=== PATIENT | male | born 1985 | race Caucasian/White ===

== ENCOUNTER 2017-02-12 01:52 | Inpatient (IN) | payer MEDICAID, OTHER ==
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
[2017-02-12] MEDS ORDERED: MAGNESIUM HYDROXIDE 2,400 MG/10 ML CUP PO PRN (06:59)
[2017-02-12] MEDS ORDERED: ACETAMINOPHEN TAB 325 MG TAB PO PRN (06:59)
[2017-02-12] MEDS ORDERED: MAG HYDROX/AL HYDROX/SIMETH 30 ML CUP PO PRN (06:59)
[2017-02-12 07:20] VITALS: RESP 18
[2017-02-12] MEDS: NICOTINE 21MG/24HR PATCH TRANSDERM SCH (09:49)
[2017-02-12 10:03] LABS: Basophils # (A) 0.1 k/uL (0-0.2); Basophils % (A) 1 %; CH 32.5; CHCM 34.4; Eosinophils # (A) 0.1 k/uL (0-0.7); Eosinophils % (A) 1 %; HCT 49.4 % (39.0-53.0); HDW 2.41; HGB 16.7 gm/dL (13.0-17.5); Luc # (Auto) 0.21; Luc % (Auto) 3; Lymphocytes # (A) 2.3 k/uL (1.0-4.8); Lymphocytes % (A) 31 %; MCHC 33.8 g/dL (31.0-37.0); MCV 94.9 fL (80.0-100.0); Mean Platelet Volume 7.5; Monocytes # (A) 0.4 k/uL (0-1.0); Monocytes % (A) 5 %; Neutrophils # (A) 4.4 k/uL (1.3-7.7); Neutrophils % (A) 59 %; RBC 5.21 m/uL (4.30-5.90); RDW 12.7 % (11.5-15.5); WBC 7.5 k/uL (3.8-10.6); WBC (Perox) 7.52
[2017-02-12 10:59] LABS: Anion Gap 13 mmol/L; Blood Urea Nitrogen 10 mg/dL (9-20); Calcium 9.9 mg/dL (8.4-10.2); Carbon Dioxide 26 mmol/L (22-30); Chloride 104 mmol/L (98-107); Glucose 149 mg/dL (74-99); Non-African American GFR(MDRD) >60 (>60 ml/min/1.73 sqM); Potassium 4.8 mmol/L (3.5-5.1); Sodium 143 mmol/L (137-145); Total Protein 8.1 g/dL (6.3-8.2)
[2017-02-12 11:00] LABS: ALT 35 U/L (21-72); AST 46 U/L (17-59); Alkaline Phosphatase 63 U/L (38-126); Total Bilirubin 0.7 mg/dL (0.2-1.3)
--- NOTE | 2017-02-12 14:03 | HP ---
DATE OF ADMISSION: DATE OF SERVICE: 02/12/2017 HISTORY OF PRESENT ILLNESS: Patient is a 31, single male, who was brought to the emergency room by the [place] police with petition completed by the officer, described him as making suicidal statement with the plan to shoot himself with a gun. According to the petition, officer who was called by patient's mother who just came to the patient house and she found him stressed out and wanted to end his life and told her that he had a gun. Patient at that time was intoxicated as he stated that she did have at least 15 beers from 9 o'clock until 12 midnight. Patient did not remember that he took the gun out of the safety cabinet, but he does recall that he did get into conflict with her girlfriend of 8 years as he said, "We were planning to have the night for ourself, then she left and she went to show with her sister and her mother and her friend." Patient denied any current suicidal or homicide ideation. He denied any depressive symptoms. He stated that he has been stressed out for the last couple of weeks due to a lot of financial problems as they are 4 months behind on their mortgage, in addition over the last week his girlfriend's car and his car, they need a lot of repair. The patient stated that he had at least 4 guns, but they are always in the safety cabinet and according to him he has been having a lot of issues in the relationship just for the last couple of months. 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 He did admit that he was angry with her on the phone, especially when she told him "I wish that she will ." Patient and his 8 years girlfriend they have a daughter who is 6 years of age, but yesterday she was spending the night over at her grandmother's as patient and his girlfriend were planning to have the night for themselves. Patient describes that he has been drinking alcohol just on the weekend, but it seems to me it is more binge drinking as he does drink between 10 to 15 beers on the weekend. He does not feed that he has any drinking problem except "just yesterday I had a lot." He denied any liquor use. His urine drug screen was negative at the time of his arrival to the emergency room. Patient denied any manic or hypomanic symptoms. He denied any obsession or compulsive symptoms. He denied feeling hopeless or helpless or worthless. He did admit that sometimes he has trouble sleeping, especially with alcohol. PAST PSYCHIATRIC HISTORY: There is no previous inpatient or outpatient treatment. There is no previous suicidal attempt. Family history of mental illness. Patient's father was drinking. He denied any suicidal in the family. His older brother who is half-sibling, Adriano has mental illness but patient is not aware which symptoms. PAST MEDICAL HISTORY: He denied any acute medical problem. ALLERGIES: There is no known allergy. HOME MEDICATION: There is no home medication. SUBSTANCE ABUSE HISTORY: He did admit to using alcohol and he denied any other drug; however, he stated that he does drink only on the weekend. He had a drunk driving ticket 4 years ago. SOCIAL HISTORY: Patient has one full biological brother who is younger than him, but he has one stepsister and one-half brother. His parents got when the patient was 4 years of age. His mother remarried when the patient was 13 years of age and he stated that his stepfather is his best friend. He graduated from high school. He denied any problem, even he stated that he did play a lot of sports. 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 He met his girlfriend Nydia who 36 years of age 8 years ago and they had been living together 7 years ago. They have one daughter who is 6 years of age, but Nydia has 2 children from previous relationship, a son who is 15 years of age and daughter who is 19 years of age. Patient stated that there is a lot of stress in the relationship lately due to financial issue. Nydia is working full-time as a computer clerk. MENTAL STATUS EXAMINATION: Patient presented as male who was wearing hospital , appearing his stated age. His eye contact is appropriate. Speech is nonpressure, spontaneous, he stated that he does not remember exactly what happened last night, but he did admit that he was stressed out due to relationship and financial problems. Thought process is linear. He reports no suicidal or homicidal ideation. He demonstrates no verbal or physical aggression. He denied any psychotic feature. He does not appear manic or hypomanic. His cognitive function is intact, as he is alert, oriented to person, place and date. His insight and judgment are limited. INTELLECTUAL FUNCTION: Average. STRENGTHS: Patient has stable job, has his own home and has very good support system, especially his mother and stepfather. WEAKNESS: Relationship problem and financial issue. IMPRESSION: 1. Mood disorder, not otherwise specified. 2. Alcohol use disorder. According to him it is more on binge drinking. 3. Rule out substance abuse, induced mood disorder. PLAN: Patient has been admitted to the mental health unit. He did agree to sign himself in voluntarily. I will start him on [facility] protocol for alcohol detox; however, patient stated that usually he does not have any withdrawal symptoms. Financial Sales Manager to contact patient's mother and girlfriend to complete psychosocial assessment and also to be sure that all the guns will be removed from the house. Will request a routine medical consultation. Will monitor him for safety and encourage him to participate in milieu.
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
[2017-02-13] MEDS: NICOTINE 21MG/24HR PATCH TRANSDERM SCH (09:13)
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
[2017-02-14 06:48] VITALS: BP 108/59; PULSE 64; TEMP 98
--- NOTE | 2017-02-14 08:37 | P.DS ---
Providers Date of admission: 02/12/17 06:13 Expected date of discharge: 02/14/17 Attending physician: Malcolm Livingston Consults: 02/12/17 06:59 Consult Physician Routine Consulting Provider: Bjorn Herrera Consult Reason/Comments: H AND P WITH MEDICAL FOLLOW UP Do you want consulting provider notified?: Yes, Notify in am Primary care physician: Stated None - Discharge Diagnosis(es) (1) Adjustment disorder with depressed mood Current Visit: Yes Status: Acute Priority: High Hospital Course: Brief summary of admission note: This patient is a 31-year-old male who was admitted to the mental health unit by Dr. Swann. He was brought in by police and he was described making suicidal statements while intoxicated with alcohol. He apparently was involved in a verbal altercation with his girlfriend. He went to his friend's house and began drinking. He reports having anywhere from 10-15 beers in the evening hours. He reported going home getting a gun out. He made some concerning statements the police were called. The weapons were removed from the home and the patient was brought to the emergency room. For full details please refer to the psychiatric evaluation dictated by Dr. Swann 02/12/2017. Summary of hospital course: The patient was admitted to the mental health unit he did sign in voluntarily. I assumed his care yesterday. The patient was interviewed yesterday and today. The electronic chart was reviewed. The patient endorses no history of major depressive episodes. He endorses no history of psychosis no history of hypomanic or manic episodes. He describes his drinking as weekends only but it does appear excessive on the days that he does drink. Both yesterday and today he adamantly denies having any suicidal thoughts. He is mainly concerned about not seeing his family and he needs to get back to work because of financial concerns. He admits him and his girlfriend need to talk more about budgeting their money as that tends to be the source of arguments. The patient was cooperative on the mental health unit he demonstrated no agitated behavior. He does not seem to require a psychotropic medication at this time. We discussed his ability to discontinue use of alcohol. He does not wish to participate in inpatient chemical dependency treatment. He does recognize that he can use more than a safe number of drinks on an occasion but he feels he can control this and needs no other external help. He voiced a willingness to social work to meet with an individual therapist upon discharge as long as it was in the evening hours. The patient underwent a routine medical exam. Mental status exam: The patient is alert he is casually dressed eye contact is appropriate. He is pleasant and cooperative. Eye contact is good speech is fluent spontaneous nonpressured. He states his mood is anxious to get out of here. He is reporting no feelings of sadness or depression. He states he does not feel hopeless he has no suicidal ideation intent or plan. He reports no homicidal ideation intent or plan. He reports no auditory or visual hallucinations he is endorsing no specific delusions. There is no overt evidence of psychosis. He does not appear hypomanic or manic. There is no verbal or physical aggressive behavior. He is oriented to person place and date. Affect is appropriately expressive. Impressions 1. Adjustment disorder with depressed mood, rule out alcohol use disorder 2. Recent financial strain, verbal altercation with girlfriend Plan: The patient's will be discharged from mental health unit today following his support meeting at 2 PM. His girlfriend will be attending that meeting and will be facilitated by social work. Social work will arrange outpatient mental health services for the patient to work with an individual counselor. He is strongly encouraged to discontinue use of alcohol. He may address alcohol use issues with his outpatient therapist. There is no imminent safety risk she does not require further psychiatric hospitalization. He is instructed to return the hospital with any acute safety issues. Patient Condition at Discharge: Stable Plan - Discharge Summary New Discharge Prescriptions: Nicotine 21Mg/24Hr Patch [Habitrol] 1 patch TRANSDERM DAILY #14 patch Discharge Medication List Nicotine 21Mg/24Hr Patch [Habitrol] 1 patch TRANSDERM DAILY #14 patch 02/14/17 [ Rx] Follow up Appointment(s)/Referral(s): None,Stated [Primary Care Provider] - 1 Week
[2017-02-14] MEDS: NICOTINE 21MG/24HR PATCH TRANSDERM SCH (09:20)
== END 2017-02-14 14:06 | disposition home or self-care (01) | DRG 881 ==
LOC: EC 01:52 → 3MHU 06:13
PROVIDERS: ADMIT Psychiatry & Neurology Psychiatry; ATTEND Psychiatry & Neurology Psychiatry
DX: F43.21 Adjustment disorder with depressed mood (principal); R45.851 Suicidal ideations; F17.200 Nicotine dependence, unspecified, uncomplicated; Z59.9 Problem related to housing and economic circumstances, unspecified; Z81.8 Family history of other mental and behavioral disorders
CPT/HCPCS: 80053; 80306; 82075; 84443; 85025; 99285

== ENCOUNTER 2017-03-21 11:45 | Observation (INO) | payer OTHER ==
[2017-03-21] MEDS ORDERED: ceFAZolin 2 GM in SODIUM CHLORIDE 0.9% 100 ML IVPB STA (12:03)
[2017-03-21] MEDS ORDERED: DIPH,PERTUS(ACELL)TETVAC-LF 0.5 ML VIAL IM ONE (12:05)
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
--- NOTE | 2017-03-21 12:29 | XR ---
EXAMINATION TYPE: XR knee complete RT DATE OF EXAM: 03/21/2017 12:22 PM CLINICAL HISTORY: Lateral puncture injury with pain TECHNIQUE: Three views of the right knee are obtained. COMPARISON: None. FINDINGS: There is no acute fracture/dislocation evident in right knee. The tri-compartment joint s paces appear within normal limits. A fabella is present. There is deformed right nail along lateral a spect of distal femoral condyle likely reflects deformed nail from encountering bone. IMPRESSION: There is foreign body ora deformed small caliber nail that is not broken and appears to extend inferiorly posteriorly and medially from the head portion of nail to the tip in close proximi ty to the adjacent bone. No acute fracture or dislocation in the right knee is seen.
[2017-03-21] MEDS: SODIUM CHLORIDE 0.9% 1,000 ML IV SCH ×2 (13:13→22:34)
[2017-03-21] MEDS ORDERED: MORPHINE SULFATE 4 MG/ML SYRINGE IVP PRN (13:14)
[2017-03-21] MEDS ORDERED: LORazepam 2 MG/ML SYRINGE IV PRN (13:18)
[2017-03-21] MEDS ORDERED: NALOXONE 0.4 MG/ML 1 ML VIAL IV PRN (13:18)
[2017-03-21] MEDS ORDERED: ONDANSETRON 4 MG/2 ML VIAL IVP PRN ×2 (13:18→16:25)
[2017-03-21 13:30] LABS: Basophils # (A) 0.1 k/uL (0-0.2); Basophils % (A) 1 %; CH 32.6; CHCM 34.3; Eosinophils # (A) 0.1 k/uL (0-0.7); Eosinophils % (A) 1 %; HCT 48.5 % (39.0-53.0); HDW 2.36; HGB 16.5 gm/dL (13.0-17.5); Luc # (Auto) 0.22; Luc % (Auto) 1; Lymphocytes # (A) 1.7 k/uL (1.0-4.8); Lymphocytes % (A) 10 %; MCH 32.5 pg (25.0-35.0); MCHC 33.9 g/dL (31.0-37.0); MCV 95.7 fL (80.0-100.0); Mean Platelet Volume 6.7; Monocytes # (A) 0.9 k/uL (0-1.0); Monocytes % (A) 5 %; Neutrophils # (A) 13.7 k/uL (1.3-7.7); Neutrophils % (A) 82 %; RBC 5.07 m/uL (4.30-5.90); RDW 12.8 % (11.5-15.5); WBC 16.7 k/uL (3.8-10.6); WBC (Perox) 16.44
[2017-03-21 13:38] LABS: INR 1.1 (<1.1); Prothrombin Time 11.4 sec (9.0-12.0)
[2017-03-21 13:48] LABS: Anion Gap 12 mmol/L; Blood Urea Nitrogen 11 mg/dL (9-20); Carbon Dioxide 25 mmol/L (22-30); Chloride 103 mmol/L (98-107); Glucose 101 mg/dL (74-99); Non-African American GFR(MDRD) >60 (>60 ml/min/1.73 sqM); Potassium 4.7 mmol/L (3.5-5.1); Sodium 140 mmol/L (137-145)
[2017-03-21] MEDS ORDERED: LACTATED RINGERS 1,000 ML IV SCH (14:45)
[2017-03-21] MEDS ORDERED: HYDROmorphone 1 MG/ML 1 ML SYRINGE IVP PRN ×4 (14:45→16:25)
[2017-03-21] MEDS ORDERED: IV FLUID CONTINUATION 980 ML IV ONE (15:00)
[2017-03-21] MEDS ORDERED: DEXAMETHASONE SOD PHOSPHATE 10 MG/ML 1 ML VIAL IV ONE (15:17)
[2017-03-21] MEDS ORDERED: ONDANSETRON 4 MG/2 ML VIAL IVP ONE (15:17)
[2017-03-21] MEDS ORDERED: SCOPOLAMINE 1.5MG/72HR PATCH TRANSDERM ONE (15:18)
[2017-03-21] MEDS ORDERED: KETOROLAC 30 MG/ML 1 ML VIAL ONE (15:28)
[2017-03-21] MEDS ORDERED: LIDOCAINE 1% INJ 10MG/ML (20 ML MDV) ONE (15:28)
[2017-03-21] MEDS ORDERED: MIDAZOLAM 2 MG/2 ML VIAL ONE (15:28)
[2017-03-21] MEDS ORDERED: fentaNYL (PF) 50 MCG/ML 2 ML AMP ONE (15:28)
[2017-03-21] MEDS ORDERED: PROPOFOL 10 MG/ML 20 ML VIAL IV ONE (15:28)
[2017-03-21] MEDS ORDERED: HYDROmorphone (PF) 1 MG/ML ONE (15:28)
[2017-03-21] MEDS ORDERED: ceFAZolin 3,000 MG in SODIUM CHLORIDE 0.9% IRRIGATIO 3,000 ML IRRIGATION ONE (15:56)
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
[2017-03-21] MEDS ORDERED: hydrOXYzine PAMOATE 25 MG CAP PO PRN ×2 (16:25)
[2017-03-21] MEDS ORDERED: HYDROcodone/APAP 5-325MG 1 EACH TAB PO PRN ×2 (16:25)
[2017-03-21] MEDS ORDERED: SENNOSIDES-DOCUSATE SODIUM 1 EACH TAB PO PRN (16:25)
--- NOTE | 2017-03-21 16:56 | FL ---
Fluoroscopy HISTORY: Pain 22 seconds fluoroscopy time supplied to the referring clinician. 2 intraoperative C-arm images docum ent the procedure. See dictated report from orthopedic surgery.
--- NOTE | 2017-03-21 16:57 | XR ---
Limited right knee HISTORY: Foreign body removal 2 intraoperative C-arm images document the procedure
[2017-03-21] MEDS: LACTATED RINGERS 1,000 ML IV SCH (17:22)
[2017-03-21] MEDS ORDERED: KETOROLAC 30 MG/ML 1 ML VIAL IVP PRN (19:49)
[2017-03-22] MEDS: ceFAZolin 2 GM in SODIUM CHLORIDE 0.9% 100 ML IVPB SCH ×2 (00:08→08:01)
[2017-03-22] MEDS: LACTATED RINGERS 1,000 ML IV SCH (02:11)
[2017-03-22 07:32] VITALS: BP 109/51; PULSE 65; RESP 20; TEMP 96.4
[2017-03-22] MEDS: SODIUM CHLORIDE 0.9% 1,000 ML IV SCH (08:01)
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
[2017-03-22] MEDS ORDERED: NICOTINE 14MG/24HR PATCH TRANSDERM SCH (09:00)
[2017-03-22] MEDS ORDERED: ENOXAPARIN 40 MG/0.4 ML SYRINGE SQ SCH (09:00)
[2017-03-22] MEDS ORDERED: PANTOPRAZOLE 40 MG/10 ML VIAL IV SCH (09:00)
--- NOTE | 2017-03-22 09:17 | P.DS ---
Providers Date of admission: 03/21/17 13:15 Expected date of discharge: 03/22/17 Attending physician: Brent Samuels Primary care physician: Stated None - Discharge Diagnosis(es) (1) Injury by nail gun Current Visit: Yes Status: Acute (2) Knee pain, right Current Visit: Yes Status: Acute Hospital Course: This is a pleasant 31-year-old gentleman who inadvertently fired a finishing nail into his right knee yesterday. He was seen in the emergency department admitted to our service for surgical intervention and removal foreign body. He' s been on IV Kefzol following the procedure. He is done well postoperatively. He seen and evaluated at bedside with Dr. Brent Samuels. His pain is fairly controlled. His pain is improved. He has no new complaints at this time. Dressing is clean dry and intact. Incision appears fine with no erythema or active drainage. Calf is soft and nontender. He has fairly good motion of the knee. Sensation and circulatory status is intact. The patient was instructed to continue to work on motion and to call our office with any questions or concerns. He may be discharged home today. Pertinent Studies: Laboratory Tests 03/21/17 13:19 WBC 16.7 H RBC 5.07 Hgb 16.5 Hct 48.5 MCV 95.7 MCH 32.5 MCHC 33.9 RDW 12.8 Plt Count 277 Neutrophils % 82 Lymphocytes % 10 Monocytes % 5 Eosinophils % 1 Basophils % 1 Neutrophils # 13.7 H Lymphocytes # 1.7 Monocytes # 0.9 Eosinophils # 0.1 Basophils # 0.1 Patient Condition at Discharge: Stable Plan - Discharge Summary New Discharge Prescriptions: Cephalexin [Keflex] 500 mg PO Q6HR #40 cap Ibuprofen [Motrin] 800 mg PO Q8HR PRN #60 tab PRN Reason: Pain Discharge Medication List Acetaminophen Tab [Tylenol Tab] 650 mg PO Q6H PRN 03/21/17 [History] Garlic 1 tab PO DAILY 03/21/17 [History] Multivit-Min/FA/Lycopen/Lutein [Centrum Silver Men Tablet] 1 tab PO DAILY [History] Cephalexin [Keflex] 500 mg PO Q6HR #40 cap 03/22/17 [Rx] Ibuprofen [Motrin] 800 mg PO Q8HR PRN #60 tab 03/22/17 [Rx] Follow up Appointment(s)/Referral(s): None,Stated [Primary Care Provider] - 1-2 days Brent Samuels DO [Doctor of Osteopathic Medicine] - 2 Weeks Activity/Diet/Wound Care/Special Instructions: Continue to work on range of motion of the right knee. Keep incision clean and dry Call [facility] with any questions or concerns [phone]. Discharge Disposition: HOME SELF-CARE
[2017-03-23] MEDS ORDERED: PANTOPRAZOLE 40 MG TABLET PO SCH (07:30)
== END 2017-03-22 10:39 | disposition home or self-care (01) ==
LOC: EC 11:45 → 4MS4W 13:15
PROVIDERS: ADMIT Orthopaedic Surgery; ATTEND Orthopaedic Surgery
DX: S81.041A Puncture wound with foreign body, right knee, initial encounter (principal); F17.200 Nicotine dependence, unspecified, uncomplicated; W29.4XXA Contact with nail gun, initial encounter; Y93.89 Activity, other specified; Y92.89 Other specified places as the place of occurrence of the external cause
CPT/HCPCS: 27310; 96365; 96366; 96375; 90471; 96361; 99284; 36415; 80048; 85025; 85610; 85730; 73560; 73562; 90715; G0378 ×2; J2250; J1100; J0690 ×3; J2405; J2001; J3010; J1885; J1170; J2704; C9113